=== PATIENT | female | born 1955 | race African-American/Black ===

== ENCOUNTER 2020-04-07 14:15 | Emergency (ER) | payer OTHER ==
[2020-04-07 14:22] VITALS: TEMP 98.1; BMI 25.9
--- NOTE | 2020-04-07 15:29 | PDOC ---
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 States she checked her BP and it was elevated so she took an extra lostartan. States she already felt she wasn't drinking enough water. States she drank a lot of water banquet captain and states her HR has improved and she feels better. States she works at [email or web address] and wants to go to work today. Pt denies all other complaints. - Medical Decision Making 04/07/20 15:25 a/p: 64yo female with a feeling of a slow hr earlier today -drank water and all symptoms resolved -pt states she will follow up with his PMD -discussed ekg, pt agrees and then she states she wants to go home Heart Score/ECG Review - ECG Intrepretation Comment:: 04/07/20 15:29 sinus at 61, nl axis, nl interval, t wave inversions v1-2, no reciprocal changes Discharge - Discharge Information Problems reviewed: Yes Clinical Impression/Diagnosis: Bradycardia Condition: Stable Disposition: HOME - Admission No - Follow up/Referral - Patient Discharge Instructions - Post Discharge Activity Work/Back to School Note: Back to Work
--- NOTE | 2020-04-07 15:33 | PDOC ---
History of Present Illness - General Chief Complaint: Blood Pressure Problem Stated Complaint: HYPERTENSION Time Seen by Provider: 04/07/20 14:39 - History of Present Illness Initial Comments: 04/07/20 17:21 64yo F with PMH of HTN presents to the ED because her pulse at home was in the 40s and her BP was in the 160s. She reports feeling each beat. She took an extra losartan after the high BP reading. She reports that symptoms have resolved and lasted for around one hour. ROS otherwise negative. PMH/PSH/Meds/Allergies: as per chart ROS GENERAL/CONSTITUTIONAL: No fever or chills. No weakness. HEAD, EYES, EARS, NOSE AND THROAT: No change in vision. No ear pain or discharge. No sore throat. CARDIOVASCULAR: No chest pain or shortness of breath RESPIRATORY: No cough, wheezing, or hemoptysis. GASTROINTESTINAL: No nausea, vomiting, diarrhea or constipation. GENITOURINARY: No dysuria, frequency, or change in urination. MUSCULOSKELETAL: No joint or muscle swelling or pain. No neck or back pain. SKIN: No rash NEUROLOGIC: No headache, vertigo, loss of consciousness, or change in strength/sensation. ENDOCRINE: No increased thirst. No abnormal weight change HEMATOLOGIC/LYMPHATIC: No anemia, easy bleeding, or history of blood clots. ALLERGIC/IMMUNOLOGIC: No hives or skin allergy. PE GENERAL: Awake, alert, and fully oriented, in no acute distress HEAD: No signs of trauma, normocephalic, atraumatic EYES: PERRLA, EOMI, sclera anicteric, conjunctiva clear ENT: Auricles normal inspection, hearing grossly normal, nares patent, oropharynx clear without exudates. Moist mucosa NECK: Normal ROM, supple, no lymphadenopathy, JVD, or masses LUNGS: No distress, speaks full sentences, clear to auscultation bilaterally HEART: Regular rate and rhythm, normal S1 and S2, no murmurs, rubs or gallops, peripheral pulses normal and equal bilaterally. ABDOMEN: Soft, nontender, normoactive bowel sounds. No guarding, no rebound. No masses EXTREMITIES : Normal inspection, Normal range of motion, no edema. No clubbing or cyanosis. NEUROLOGICAL: Cranial nerves II through XII grossly intact. Normal speech, normal gait, no focal sensorimotor deficits SKIN: Warm, Dry, normal turgor, no rashes or lesions noted Vital Signs Temp Pulse Resp BP Pulse Ox 98.1 F 63 14 133/80 0 L 04/07/20 14:20 04/07/20 15:00 04/07/20 15:00 04/07/20 15:00 04/07/20 15:00 64yo F with PMH of HTN presents to the ED because her pulse at home was in the 40s and her BP was in the 160s. In the ED, her pulse is 63 and BP is 133, and all symptoms have resolved. DDx includes sinus bradycardia vs. heart block. -EKG EKG: NSR, rate 61, normal axis and intervals, no ischemic ST-T changes DC home with PCP and cardiology f/u Past History - Medical History Allergies/Adverse Reactions: Allergies Allergy/AdvReac Type Severity Reaction Status Date / Time No Known Allergies Allergy Verified 04/07/20 14:18 Home Medications: Ambulatory Orders Diltiazem Cd [Cardizem Cd -] 300 mg PO HS 04/07/20 Diphenhydramine HCl [Benadryl -] 25 mg PO HS 04/07/20 Famotidine [Pepcid] 40 mg PO DAILY 04/07/20 Hydrochlorothiazide [Hctz -] 12.5 mg PO HS 04/07/20 Insulin Glargine,Hum.rec.anlog [Lantus] 18 unit SQ DAILY 04/07/20 Losartan Potassium 50 mg PO HS 04/07/20 Metformin HCl [Glucophage] 1,000 mg PO BID 04/07/20 COPD: No Dementia: Yes GI Disorders: Yes (gerd) HTN: Yes Thyroid Disease: Yes (hypo) - Reproductive History Is Patient Now?: No - Psycho-Social/Smoking History Smoking History: Former smoker Have you smoked in the past 12 months: No Information on smoking cessation initiated: No - Substance Abuse Hx (Audit-C & DAST Scrn) How often the patient has a drink containing alcohol: Never Score: In Men: 4 or > Positive; In Women: 3 or > Positive: 0 Screen Result (Pos requires Nsg. Audit-10AR): Negative In the last yr the pt used illegal drug/Rx for NonMed reason: No Score: Yes response is considered Positive: 0 Screen Result (Positive result requires Nsg. DAST-10): Negative *Physical Exam - Vital Signs Last Vital Signs Temp Pulse Resp BP Pulse Ox 98.1 F 63 14 133/80 0 L 04/07/20 14:20 04/07/20 15:00 04/07/20 15:00 04/07/20 15:00 04/07/20 15:00 Discharge - Discharge Information Problems reviewed: Yes Clinical Impression/Diagnosis: Bradycardia High blood pressure Qualifiers: Hypertension type: essential hypertension Qualified Code(s): I10 - Essential (primary) hypertension Condition: Fair Disposition: HOME - Admission No - Follow up/Referral Referrals: Carlos Smith MD [Staff Physician] - - Patient Discharge Instructions Additional Instructions: You were seen in the ER after you had an episode of low heart rate and high bloo d pressure. We did a physical exam and EKG which did not show anything emergent. Y?our heart rate was normal in the ER and your symptoms had gone away. 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 Please return to the ER for chest pain, shortness of breath, vomiting, slow heart rate, or any other reason. - Post Discharge Activity Work/Back to School Note: Back to Work
[2020-04-07 15:42] VITALS: BP 133/80; PULSE 63
--- OUTSIDE RECORDS SUMMARY | 2020-04-07 16:48 | XMS ---
:1955 Author Organization [facility] Support Name Relationship Address Phone ELDON MELTON HALFWAY Unavailable [phone] [place] [address] CAB Unavailable [address] [place] [address] KEN KEITA SON [address] [place] [address] Re-disclosure Warning The records that you are about to access may contain information from federally- assisted alcohol or drug abuse programs. If such information is present, then the following federally mandated warning applies: This information has been disclosed to you from records protected by federal confidentiality rules (42 CFR part 2). The federal rules prohibit you from making any further disclosure of this information unless further disclosure is expressly permitted by the written consent of the person to whom it pertains or as otherwise permitted by 42 CFR part 2. A general authorization for the release of medical or other information is NOT sufficient for this purpose. The Federal rules restrict any use of the information to criminally investigate or prosecute any alcohol or drug abuse patient.The records that you are about to access may contain highly sensitive health information, the redisclosure of which is protected by Article 27-F of the [facility] Public Health law. If you continue you may haveaccess to information: Regarding HIV / AIDS; Provided by facilities licensed or operated by the [facility] Office of Mental Health; or Provided by the [facility] Office for People With Developmental Disabilities. If such information is present, then the following [facility] mandated warning applies: This information has been disclosed to you from confidential records which are protected by state law. State law prohibits you from making any further disclosure of this information without the specific written consent of the person to whom it pertains, or as otherwise permitted by law. Any unauthorized further disclosure in violation of state law may result in a fine or long-term sentence or both. A general authorization for the release of medical or other information is NOT sufficient authorization for further disclosure. Insurance Providers Payer name Policy type Policy ID Covered Covered republican's Policy P izabella / Coverage republican ID relationship to Banks Inf ormation type banks LOCAL 1199 - [id number] [facility] Results ID Date Data Source [id number] 03/29/2020 08:08:00 AM EDT [facility] Name Value Range Interpretation Code Description Data Ashley rce(s) Supporting Document(s ) HOLOGIC [facility] SARS-CoV-2 TMA PCR This lab was ordered by [facility] and reported by [facility]. ID Date Data Source [id number] 03/22/2020 09:10:00 AM EDT [facility] Name Value Range Interpretation Code Description Data Ashley rce(s) Supporting Document(s ) HOLOGIC [facility] SARS-CoV-2 TMA PCR This lab was ordered by [facility] GORDILLO and reported by [facility]. ID Date Data Source [id number] 03/15/2020 12:30:00 PM EDT [facility] Name Value Range Interpretation Code Description Data Ashley rce(s) Supporting Document(s ) HOLOGIC [facility] SARS-CoV-2 TMA PCR This lab was ordered by [facility] GORDILL[facility] and reported by [facility]. ID Date Data Source [id number] 03/08/2020 10:54:00 AM EDT [facility] Name Value Range Interpretation Code Description Data Ashley rce(s) Supporting Document(s ) HOLOGIC [facility] SARS-CoV-2 TMA PCR This lab was ordered by [facility]ON GORDILLO and reported by [facility]. ID Date Data Source [id number] 03/01/2020 09:41:00 AM EDT [facility] Name Value Range Interpretation Code Description Data Ashley rce(s) Supporting Document(s ) HOLOGIC [facility] SARS-CoV-2 TMA PCR This lab was ordered by [facility] GORDILL[facility] and reported by [facility]. ID Date Data Source [id number] 02/23/2020 09:56:00 AM EDT [facility] Name Value Range Interpretation Code Description Data Ashley rce(s) Supporting Document(s ) HOLOGIC [facility] SARS-CoV-2 TMA PCR This lab was ordered by [facility] and reported by [facility]. ID Date Data Source [id number] 02/16/2020 09:48:00 AM EDT [facility] Name Value Range Interpretation Code Description Data Ashley rce(s) Supporting Document(s ) HOLOGIC [facility] SARS-CoV-2 TMA PCR This lab was ordered by [facility]ORDILL[facility] and reported by [facility]. ID Date Data Source [id number] 02/09/2020 09:44:00 AM EDT [facility] Name Value Range Interpretation Code Description Data Ashley rce(s) Supporting Document(s ) SARS-CoV-2 [facility] , RNA This lab was ordered by [facility] GORDILL[facility] and reported by [facility]. ID Date Data Source [id number] 02/03/2020 09:55:00 AM EDT [facility] Name Value Range Interpretation Code Description Data Ashley rce(s) Supporting Document(s ) SARS-CoV-2 [facility] , RNA This lab was ordered by [facility] and reported by [facility]. ID Date Data Source [id number] 01/26/2020 09:49:00 AM EDT [facility] Name Value Range Interpretation Code Description Data Ashley rce(s) Supporting Document(s ) SARS-CoV-2 [facility] , RNA This lab was ordered by [facility] and reported by [facility]. ID Date Data Source [id number] 01/20/2020 12:41:00 PM EDT [facility] Name Value Range Interpretation Code Description Data Ashley rce(s) Supporting Document(s ) SARS-CoV-2 [facility] , RNA This lab was ordered by [facility] GORDILL[facility] and reported by [facility]. ID Date Data Source [id number] 01/13/2020 01:56:00 AM EDT [facility] Name Value Range Interpretation Code Description Data Ashley rce(s) Supporting Document(s ) SARS-CoV-2 [facility] , RNA This lab was ordered by [facility] GORDILL[facility] and reported by [facility]. ID Date Data Source [id number] 01/06/2020 02:08:00 AM EDT [facility] Name Value Range Interpretation Code Description Data Ashley rce(s) Supporting Document(s ) SARS-CoV-2 [facility] , RNA This lab was ordered by [facility]ORD[facility] and reported by [facility]. ID Date Data Source [id number] 12/30/2019 02:19:00 AM EDT [facility] Name Value Range Interpretation Code Description Data Ashley rce(s) Supporting Document(s ) SARS-CoV-2 [facility] , RNA This lab was ordered by [facility] and reported by [facility]. ID Date Data Source [id number] 12/24/2019 02:06:00 PM EDT [facility] Name Value Range Interpretation Code Description Data Ashley rce(s) Supporting Document(s ) SARS-CoV-2 [facility] , RNA This lab was ordered by [facility] GORDILL[facility] and reported by [facility]. ID Date Data Source [id number] 12/21/2019 10:08:00 AM EDT [facility] Name Value Range Interpretation Code Description Data Ashley rce(s) Supporting Document(s ) SARS-CoV-2 [facility] , RNA This lab was ordered by [facility] GORDILLO and reported by [facility]. ID Date Data Source [id number] 12/17/2019 03:02:00 PM EDT [facility] Name Value Range Interpretation Code Description Data Ashley rce(s) Supporting Document(s ) SARS-CoV-2 [facility] , RNA This lab was ordered by [facility] GORDILL[facility] and reported by [facility]. ID Date Data Source [id number] 12/13/2019 02:06:00 AM EDT [facility] Name Value Range Interpretation Code Description Data Ashley rce(s) Supporting Document(s ) SARS-CoV-2 [facility] , RNA This lab was ordered by [facility] and reported by [facility]. ID Date Data Source [id number] 12/10/2019 02:10:00 AM EDT [facility] Name Value Range Interpretation Code Description Data Ashley rce(s) Supporting Document(s ) SARS-CoV-2 [facility] , RNA This lab was ordered by [facility]ON GORDILLO and reported by [facility]. ID Date Data Source [id number] 12/04/2019 03:00:00 PM EDT [facility] Name Value Range Interpretation Code Description Data Ashley rce(s) Supporting Document(s ) SARS-CoV-2 [facility] , RNA This lab was ordered by [facility]ON GORDILLO and reported by [facility]. Procedure
--- NOTE | 2020-04-08 10:01 | EKG ---
Test Reason : Blood Pressure : / mmHG Vent. Rate : 061 BPM Atrial Rate : 061 BPM P-R Int : 150 ms QRS Dur : 082 ms QT Int : 438 ms P-R-T Axes : 033 -14 029 degrees QTc Int : 440 ms NORMAL SINUS RHYTHM MINIMAL VOLTAGE CRITERIA FOR LVH, MAY BE NORMAL VARIANT CANNOT RULE OUT ANTERIOR INFARCT , AGE UNDETERMINED ABNORMAL ECG WHEN COMPARED WITH ECG OF 11-JAN-2011 10:40, INVERTED T WAVES HAVE REPLACED NONSPECIFIC T WAVE ABNORMALITY IN ANTERIOR LEADS Confirmed by Zhen Feliciano ([id number]) on 04/08/2020 10:00:42 AM Referred By: Confirmed By:Zhen Feliciano
== END 2020-04-07 15:42 | disposition home or self-care (01) ==
LOC: JER 14:15
DX: R00.1 Bradycardia, unspecified (principal); I10 Essential (primary) hypertension
CPT/HCPCS: 93005; 93010; 99283-25

== ENCOUNTER 2022-05-26 04:28 | Day surgery (SDC) | payer OTHER ==
[2022-05-25 09:17] VITALS: BMI 25.7
[2022-05-26 10:32] VITALS: TEMP 97.9
[2022-05-26 11:39] VITALS: BP 108/44; PULSE 55; RESP 14
== END 2022-05-26 11:39 | disposition home or self-care (01) ==
LOC: JASU-ENDO 04:28
PROVIDERS: ATTEND Internal Medicine Gastroenterology
PROC: 0DJD8ZZ Inspection of Lower Intestinal Tract, Via Natural or Artificial Opening Endoscopic (ICD-10-PCS; principal; 2022-05-26 09:15)
DX: Z12.11 Encounter for screening for malignant neoplasm of colon (principal); Z86.010 Personal history of colon polyps
CPT/HCPCS: 82962; 88305-TC; 88342-TC